=== PATIENT | male | born 1965 | race Caucasian/White ===

== ENCOUNTER 2020-02-03 06:49 | Emergency (ER) | payer MEDICAID ==
[~2020-02-03] VITALS: Ht 180.3 cm; Wt 112.0 kg
[2020-02-03] MEDS ORDERED: IBUPROFEN 800MG TABLET PO ONE (07:45)
[2020-02-03] MEDS ORDERED: TETRACAINE 0.5% OPHTH DROPS 4ML BOTHEYE ONE (07:45)
[2020-02-03] MEDS ORDERED: FLUORESCEIN SODIUM 1MG/STRIP BOTHEYE ONE (07:45)
[2020-02-03] MEDS ORDERED: ACETAMINOPHEN 325MG TABLET PO ONE (08:00)
[2020-02-03 08:31] VITALS: BP 136/66
== END 2020-02-03 08:38 | disposition home or self-care (01) ==
LOC: ER 06:49
DX: K08.89 Other specified disorders of teeth and supporting structures (principal)
CPT/HCPCS: 99284

== ENCOUNTER 2025-06-21 01:05 | Emergency (ER) | payer MEDICAID ==
[~2025-06-21] VITALS: Ht 170.2 cm; Wt 100.0 kg
[2025-06-21 01:19] VITALS: O2SAT 97
[2025-06-21] MEDS ORDERED: IBUP-2028 MT (05:55)
[2025-06-21 06:02] VITALS: BP 118/71; PULSE 56; RESP 18; TEMP 36.6; O2SAT 96
== END 2025-06-21 06:25 | disposition home or self-care (01) ==
LOC: ER 01:05
DX: R07.81 Pleurodynia (principal); E11.9 Type 2 diabetes mellitus without complications
CPT/HCPCS: 71101; 74176; 99284

== ENCOUNTER 2025-07-31 21:39 | Emergency (ER) | payer MEDICAID ==
[~2025-07-31] VITALS: Ht 177.8 cm; Wt 101.7 kg
[~2025-07-31 21:39] MED LIST: IBUP-2028 MT
[2025-07-31 21:48] VITALS: TEMP 36.8; O2SAT 98
[2025-07-31 23:09] LABS: CLARITY URINE CLEAR (CLEAR); COLOR URINE YELLOW (YELLOW); GLUCOSE URINE NEGATIVE (NEGATIVE); KETONES URINE NEGATIVE (NEGATIVE); LEUKOCYTE ESTERASE URINE NEGATIVE (NEGATIVE); NITRITE URINE NEGATIVE (NEGATIVE); OCCULT BLOOD URINE NEGATIVE (NEGATIVE); PH URINE 5.5 (4.5-8.0); PROTEIN URINE NEGATIVE (NEGATIVE); SPECIFIC GRAVITY URINE 1.020 (1.005-1.030); UROBILINOGEN URINE 0.2 E.U./dL (0.2-1.0)
[2025-08-01] MEDS ORDERED: VARE1TAB21 MT (00:43)
[2025-08-01] MEDS ORDERED: FAMO-135 MT (00:43)
[2025-08-01 00:54] VITALS: BP 111/58; PULSE 64; RESP 12; O2SAT 99
== END 2025-08-01 00:55 | disposition home or self-care (01) ==
LOC: ER 21:39
DX: F17.200 Nicotine dependence, unspecified, uncomplicated (principal); E11.9 Type 2 diabetes mellitus without complications
CPT/HCPCS: 81003; 93005; 99284